=== PATIENT | male | born 1945 | race Hispanic/Latino ===

== ENCOUNTER 2020-01-07 16:10 | Outpatient (CLI) | payer MEDICARE ==
[2020-01-08 09:18] LABS: SARS-CoV-2 MS2 Positive; SARS-CoV-2 N Gene Positive; SARS-CoV-2 S Gene Positive; SARS-CoV-2 by NAA DETECTED (NotDetected); SARS-CoV-2 orf1ab Positive
== END 2020-01-07 16:11 | disposition home or self-care (01) ==
LOC: LABBT 16:10
PROVIDERS: ATTEND Ophthalmology Retina Specialist
DX: U07.1 COVID-19 (principal); Z01.812 Encounter for preprocedural laboratory examination; H54.7 Unspecified visual loss
CPT/HCPCS: 87635; U0003

== ENCOUNTER 2020-04-03 06:24 | Day surgery (SDC) | payer MEDICARE ==
[2020-04-02 11:17] VITALS: BMI 24.2
[2020-04-03] MEDS ORDERED: Fluorouracil 100 MG, Enoxaparin Sodium 25 MG, EPINEPHrine 0.3 MG in Ophthalmic Irrigati... IRR SCH (06:30)
[2020-04-03] MEDS ORDERED: Phenylephrine 2.5% Ophth Soln 5 ML BOT ONE (06:33)
[2020-04-03] MEDS ORDERED: Cyclopentolate 1% Opth Drop 2 ML BOT ONE (06:33)
[2020-04-03] MEDS ORDERED: Midazolam HCl 2 mg/2 ml Vial ONE (07:50)
[2020-04-03] MEDS ORDERED: Fentanyl 100 MCG/2 ML VIAL ONE (07:50)
[2020-04-03] MEDS ORDERED: PROPOFOL 200 MG/20 ML VIAL ONE (12:59)
[2020-04-03] MEDS ORDERED: Enoxaparin Sodium 30 MG/0.3 ML SYRINGE ONE (12:59)
[2020-04-03] MEDS ORDERED: Lidocaine 4% PF 5 ML AMP ONE (12:59)
[2020-04-03] MEDS ORDERED: Maxitrol 0.1% Opth Oint 3.5 GM TUBE ONE (12:59)
[2020-04-03] MEDS ORDERED: Lidocaine 1% PF 5 ML VIAL ONE (12:59)
[2020-04-03] MEDS ORDERED: Triamcinolone 40 MG/ML VIAL ONE (12:59)
[2020-04-03] MEDS ORDERED: Bupivacaine PF 0.75% SDV 10 ML ONE (12:59)
[2020-04-03] MEDS ORDERED: CEFAZOLIN 1 GM VIAL ONE (12:59)
--- NOTE | 2020-04-04 14:17 | OP ---
DATE OF PROCEDURE: 04/03/2020 PREOPERATIVE DIAGNOSES: Glaucoma and dislocated intraocular lens with vitreous in the anterior chamber and vitreous membranes and strands in the right eye. POSTOPERATIVE DIAGNOSES: Glaucoma and dislocated intraocular lens with vitreous in the anterior chamber and vitreous membranes and strands in the right eye. DESCRIPTION OF PROCEDURE: The patient was identified in the preoperative holding area. Appropriate informed consent for the planned surgical procedure on the right eye had been obtained. The patient was transported to the operative suite. Appropriate cardiopulmonary monitoring was established. Local anesthesia was obtained using retrobulbar modified Van Lint lid block using 50:50 mixture of 4% lidocaine and 0.75% bupivacaine. The patient was prepped and draped in the usual sterile manner for ophthalmic surgery in the right eye. Lid speculum was placed in the right eye. A 27-gauge trocar was placed superotemporally, inferotemporally, supranasally. Superotemporal conjunctiva was created and an FP7 tube shunt was sutured to the sclera 14 mm posterior to the limbus superotemporally. Light pipe and vitreous cutter were inserted into the eye. Core vitrectomy was performed. Vitreous was trimmed back 360 degrees. Endolaser photocoagulation was used to treat a suspected retinal defect superotemporally, but no further holes, breaks, or tears were identified. Superotemporal trocar was removed 22-gauge and the tube was placed into the posterior chamber. Tutoplast graft was sutured over the end of the tube and the conjunctiva was closed with 6-0 plain gut suture. Trocars were removed, and the eye was noted to be holding pressure well. Retrobulbar Kenalog and subconjunctival Ancef were placed. Antibiotic ointment was placed. Eye was patched and shielded. The patient was taken to postop recovery unit in good condition having suffered no immediate perioperative complication. The patient was instructed to keep patch and shield on, avoid lifting or bending. Followup appointment with Dr. Leong. Job ID: [id number]
== END 2020-04-03 09:45 | disposition home or self-care (01) ==
LOC: SDC 06:24
PROVIDERS: ATTEND Ophthalmology Retina Specialist
PROC: 08123J4 Bypass Right Anterior Chamber to Sclera with Synthetic Substitute, Percutaneous Approach (ICD-10-PCS; principal; 2020-04-03)
PROC: 08T43ZZ Resection of Right Vitreous, Percutaneous Approach (ICD-10-PCS; 2020-04-03)
PROC: 08QE3ZZ Repair Right Retina, Percutaneous Approach (ICD-10-PCS; 2020-04-03)
DX: H40.2210 Chronic angle-closure glaucoma, right eye, stage unspecified (principal); H43.311 Vitreous membranes and strands, right eye; T85.22XA Displacement of intraocular lens, initial encounter
CPT/HCPCS: 66180; 67039; 82962; L8612; 36416; J0171; J0690; J1650; J2250; J2704; J3010; J3301; J3490; J9190

== ENCOUNTER 2020-05-14 11:55 | Outpatient (CLI) | payer MEDICARE | END 2020-05-14 11:56 | disposition home or self-care (01) | LOC: BICRAD 11:55 | PROVIDERS: ATTEND Family Medicine | DX: R05 Cough (principal); R91.8 Other nonspecific abnormal finding of lung field | CPT/HCPCS: 71046 ==

== ENCOUNTER 2021-04-10 09:23 | Outpatient (CLI) | payer MEDICARE | END 2021-04-10 09:24 | disposition home or self-care (01) | LOC: SCSMRI 09:23 | PROVIDERS: ATTEND Family Medicine | DX: M47.26 Other spondylosis with radiculopathy, lumbar region (principal); I71.4 Abdominal aortic aneurysm, without rupture; M47.817 Spondylosis without myelopathy or radiculopathy, lumbosacral region | CPT/HCPCS: 72148 ==

== ENCOUNTER 2021-04-28 08:16 | Outpatient (CLI) | payer MEDICARE | END 2021-04-28 08:17 | disposition home or self-care (01) | LOC: BICULT 08:16 | PROVIDERS: ATTEND Family Medicine | DX: I71.4 Abdominal aortic aneurysm, without rupture (principal) | CPT/HCPCS: 76775 ==

== ENCOUNTER 2024-10-06 04:43 | Inpatient (IN) | payer OTHER ==
[2024-10-06 05:08] LABS: #Basophils 0.10 10x3/uL (0.0-0.2); #Eosinophils 0.27 10x3/uL (0.0-0.7); #Monocytes 0.75 10x3/uL (0.11-0.59); #Neutrophils 7.79 10x3/uL (1.40-6.50); %Basophils 1.0 % (0.0-1.0); %Eosinophils 2.6 % (0.0-10.0); %Lymphocytes 14.8 % (21.0-51.0); %Monocytes 7.1 % (0.0-10.0); %Neutrophils 74.1 % (42.0-75.0); Hematocrit 40.0 % (42.0-52.0); Hemoglobin 13.0 g/dL (14.0-18.0); Mean Corpuscular Hemoglobin 26.7 pg (27.0-31.0); Mean Corpuscular Volume 82.3 fL (78.0-98.0); Platelet Count 295 10x3/uL (130-400); Red Blood Cell (RBC) Count 4.86 mill/uL (4.70-6.10); White Blood Cell (WBC) Count 10.51 10x3/uL (4.8-10.8)
[2024-10-06 05:22] LABS: INR-International Normal Ratio 0.9; Prothrombin Time 12.5 sec (12.0-14.7)
[2024-10-06 05:23] LABS: PTT 32.1 sec (22.9-36.1)
[2024-10-06 05:24] LABS: ALT (SGPT) 11 U/L (Less than 45); AST (SGOT) 18 U/L (11-34); Albumin 3.5 g/dL (3.1-4.5); Alkaline Phosphatase 100 U/L (40-110); Anion Gap 11 mmol/L (10-20); BUN (Urea Nitrogen) 29 mg/dL (8.4-25.7); Bilirubin, Total 0.3 mg/dL (0.3-1.2); Calc. Creatinine Clearance 0 mL/min (70-130); Calcium 8.7 mg/dL (7.8-10.44); Carbon Dioxide 19 mmol/L (23-31); Chloride 109 mmol/L (98-107); Globulin 3.3 g/dL (2.4-3.5); Glucose 166 mg/dL (83-110); Potassium 3.9 mmol/L (3.5-5.1); Sodium 135 mmol/L (136-145)
[2024-10-06] MEDS ORDERED: Aspirin 325 MG TAB ONE (07:53)
[2024-10-06] MEDS ORDERED: hydrALAZINE 20 MG/ML VIAL SLOW IVP PRN (08:40)
[2024-10-06] MEDS ORDERED: Ondansetron PF 4 MG/2 ML Vial IVP PRN (08:41)
[2024-10-06] MEDS ORDERED: Calcium Carbonate 500 MG ChewTAB PO PRN (08:41)
[2024-10-06] MEDS ORDERED: Electrolyte Replacement Protocol 1 EACH FS SCH (08:45)
[2024-10-06] MEDS ORDERED: Glucagon 1 MG/ML KIT IM PRN (09:28)
[2024-10-06] MEDS ORDERED: Dextrose 50% Abboject 50 ML SYRINGE SLOW IVP PRN (09:28)
[2024-10-06] MEDS ORDERED: Iopamidol 370 76% 100 ML VIAL ONE (13:37)
[2024-10-06 20:33] VITALS: BMI 23.8
[2024-10-06] MEDS: Rosuvastatin 20 MG TAB PO SCH (20:42)
[2024-10-07 05:15] LABS: #Basophils 0.11 10x3/uL (0.0-0.2); #Eosinophils 0.32 10x3/uL (0.0-0.7); #Monocytes 0.68 10x3/uL (0.11-0.59); #Neutrophils 6.90 10x3/uL (1.40-6.50); %Basophils 1.1 % (0.0-1.0); %Eosinophils 3.3 % (0.0-10.0); %Lymphocytes 17.9 % (21.0-51.0); %Monocytes 6.9 % (0.0-10.0); %Neutrophils 70.3 % (42.0-75.0); Hematocrit 42.1 % (42.0-52.0); Hemoglobin 13.2 g/dL (14.0-18.0); Mean Corpuscular Hemoglobin 26.1 pg (27.0-31.0); Mean Corpuscular Volume 83.4 fL (78.0-98.0); Platelet Count 302 10x3/uL (130-400); Red Blood Cell (RBC) Count 5.05 mill/uL (4.70-6.10); White Blood Cell (WBC) Count 9.82 10x3/uL (4.8-10.8)
[2024-10-07 05:36] LABS: ALT (SGPT) 9 U/L (Less than 45); AST (SGOT) 16 U/L (11-34); Albumin 3.4 g/dL (3.1-4.5); Alkaline Phosphatase 70 U/L (40-110); Anion Gap 10 mmol/L (10-20); BUN (Urea Nitrogen) 18 mg/dL (8.4-25.7); Bilirubin, Total 0.3 mg/dL (0.3-1.2); Calc. Creatinine Clearance 45 mL/min (70-130); Calcium 8.9 mg/dL (7.8-10.44); Carbon Dioxide 21 mmol/L (23-31); Cardiac Risk 3.7 (Less than 4.5); Chloride 111 mmol/L (98-107); Cholesterol 157 mg/dl (< 200 Desired); Globulin 3.3 g/dL (2.4-3.5); Glucose 127 mg/dL (83-110); HDL Cholesterol 43 mg/dL (>60 Neg Risk); LDL Cholesterol, Calculated 99 mg/dL; Potassium 3.9 mmol/L (3.5-5.1); Sodium 138 mmol/L (136-145); Triglycerides 74 mg/dL (Less than 150)
[2024-10-07] MEDS: Aspirin 81 mg Enteric Coated Tablet PO SCH (09:00)
[2024-10-07] MEDS: Rosuvastatin 20 MG TAB PO SCH (21:21)
[2024-10-08] MEDS: Acetaminophen 325 MG TAB PO PRN (07:15)
[2024-10-08] MEDS ORDERED: Senokot 8.6 MG TAB PO PRN (12:25)
[2024-10-08 16:01] VITALS: BMI 23.8
[2024-10-09] MEDS: Enoxaparin 40 MG (0.4 mL) SYRINGE SC SCH (08:58)
[2024-10-09 09:38] LABS: Bacteria/HPF None Seen HPF (None Seen); CAUTI Indications for Culture Pelvic or flank pain; Glucose, Urine (Dipstick) Normal (Negative); Leukocyte Negative Leu/uL (Negative); Protein, Urine (Dipstick) 70 mg/dL (Neg-Trace); RBC/HPF 0-3 HPF (0-3); Specific Gravity, Urine 1.019 (1.002-1.036); WBC/HPF 0-3 HPF (0-3)
[2024-10-09 09:39] LABS: Urine Culture Reflex No No
[2024-10-09 12:13] VITALS: TEMP 97.8
[2024-10-09 15:06] VITALS: BP 154/72
== END 2024-10-09 16:45 | DRG 65 ==
LOC: ERS 04:43 → ERHOLD 07:47 → 2NO 23:50
PROVIDERS: ADMIT Student in an Organized Health Care Education/Training Program; ATTEND Internal Medicine
DX: I63.9 Cerebral infarction, unspecified (principal); G81.91 Hemiplegia, unspecified affecting right dominant side; N17.9 Acute kidney failure, unspecified; E11.9 Type 2 diabetes mellitus without complications; Z98.890 Other specified postprocedural states; Z72.0 Tobacco use; Z82.49 Family history of ischemic heart disease and other diseases of the circulatory system; Z83.3 Family history of diabetes mellitus; Z79.899 Other long term (current) drug therapy; R29.810 Facial weakness; R29.706 NIHSS score 6
CPT/HCPCS: 0042T; 36415; 36416; 70450; 70496; 70498; 70551; 80053; 80061; 81001; 83036; 84484; 85025; 85610; 85730; 93005; 93306; 94760; J1650; J1815; Q9967

== ENCOUNTER 2024-11-03 07:19 | Inpatient (IN) | payer OTHER ==
[2024-11-03 08:01] LABS: #Basophils 0.11 10x3/uL (0.0-0.2); #Eosinophils 0.44 10x3/uL (0.0-0.7); #Monocytes 0.79 10x3/uL (0.11-0.59); #Neutrophils 5.81 10x3/uL (1.40-6.50); %Basophils 1.2 % (0.0-1.0); %Eosinophils 4.8 % (0.0-10.0); %Lymphocytes 21.1 % (21.0-51.0); %Monocytes 8.7 % (0.0-10.0); %Neutrophils 63.8 % (42.0-75.0); Hematocrit 40.3 % (42.0-52.0); Hemoglobin 12.7 g/dL (14.0-18.0); Mean Corpuscular Hemoglobin 26.6 pg (27.0-31.0); Mean Corpuscular Volume 84.5 fL (78.0-98.0); Platelet Count 322 10x3/uL (130-400); Red Blood Cell (RBC) Count 4.77 mill/uL (4.70-6.10); White Blood Cell (WBC) Count 9.11 10x3/uL (4.8-10.8)
[2024-11-03 08:18] LABS: Magnesium 1.8 mg/dL (1.6-2.6)
[2024-11-03 08:19] LABS: ALT (SGPT) 16 U/L (Less than 45); AST (SGOT) 19 U/L (11-34); Acetaminophen Less than 10 mcg/mL (Less than 10); Albumin 3.5 g/dL (3.1-4.5); Alkaline Phosphatase 89 U/L (40-110); Anion Gap 16 mmol/L (10-20); BUN (Urea Nitrogen) 27 mg/dL (8.4-25.7); Bilirubin, Total 0.3 mg/dL (0.3-1.2); Calc. Creatinine Clearance 0 mL/min (70-130); Calcium 9.2 mg/dL (7.8-10.44); Carbon Dioxide 19 mmol/L (23-31); Chloride 108 mmol/L (98-107); Globulin 3.0 g/dL (2.4-3.5); Glucose 166 mg/dL (83-110); Potassium 3.7 mmol/L (3.5-5.1); Salicylate Less than 8.0 mg/dL (Less than 8.0); Sodium 139 mmol/L (136-145)
[2024-11-03 08:48] LABS: Bacteria/HPF None Seen HPF (None Seen); CAUTI Indications for Culture Alt mental st,lethar; Glucose, Urine (Dipstick) 100 mg/dL (Negative); Leukocyte Negative Leu/uL (Negative); Protein, Urine (Dipstick) 50 mg/dL (Neg-Trace); RBC/HPF 0-3 HPF (0-3); Specific Gravity, Urine 1.013 (1.002-1.036); WBC/HPF 0-3 HPF (0-3)
[2024-11-03 08:53] LABS: Urine Culture Reflex No No
[2024-11-03 08:57] LABS: Cocaine Metabolite Screen Negative (Negative); THC/Cannabinoid Screen Negative (Negative); Tricyclic Screen Negative (Negative)
[2024-11-03] MEDS ORDERED: hydrALAZINE 20 MG/ML VIAL ONE (09:24)
[2024-11-03] MEDS ORDERED: Acetaminophen 500 MG TAB ONE (09:24)
[2024-11-03] MEDS ORDERED: Dextrose 50% Abboject 50 ML SYRINGE SLOW IVP PRN (10:01)
[2024-11-03] MEDS ORDERED: Senokot S 8.6-50 MG TAB PO PRN (10:01)
[2024-11-03] MEDS ORDERED: Glucagon 1 MG/ML KIT IM PRN (10:01)
[2024-11-03] MEDS ORDERED: hydrALAZINE 20 MG/ML VIAL SLOW IVP PRN (10:01)
[2024-11-03 10:19] VITALS: BMI 25.4
[2024-11-03] MEDS ORDERED: Ondansetron PF 4 MG/2 ML Vial ONE (12:23)
[2024-11-03] MEDS: Ondansetron PF 4 MG/2 ML Vial IVP SCH (12:28)
[2024-11-03] MEDS: Rosuvastatin 20 MG TAB PO SCH (21:19)
[2024-11-03] MEDS: Famotidine 20 MG TAB PO SCH (21:19)
[2024-11-04 04:09] LABS: #Basophils 0.07 10x3/uL (0.0-0.2); #Eosinophils 0.12 10x3/uL (0.0-0.7); #Monocytes 0.63 10x3/uL (0.11-0.59); #Neutrophils 9.22 10x3/uL (1.40-6.50); %Basophils 0.6 % (0.0-1.0); %Eosinophils 1.1 % (0.0-10.0); %Lymphocytes 9.8 % (21.0-51.0); %Monocytes 5.6 % (0.0-10.0); %Neutrophils 82.6 % (42.0-75.0); Hematocrit 38.0 % (42.0-52.0); Hemoglobin 12.0 g/dL (14.0-18.0); Mean Corpuscular Hemoglobin 26.5 pg (27.0-31.0); Mean Corpuscular Volume 83.9 fL (78.0-98.0); Platelet Count 287 10x3/uL (130-400); Red Blood Cell (RBC) Count 4.53 mill/uL (4.70-6.10); White Blood Cell (WBC) Count 11.16 10x3/uL (4.8-10.8)
[2024-11-04 04:21] LABS: Anion Gap 11 mmol/L (10-20); BUN (Urea Nitrogen) 23 mg/dL (8.4-25.7); Calc. Creatinine Clearance 40 mL/min (70-130); Calcium 8.7 mg/dL (7.8-10.44); Carbon Dioxide 22 mmol/L (23-31); Cardiac Risk 2.5 (Less than 4.5); Chloride 110 mmol/L (98-107); Cholesterol 81 mg/dl (< 200 Desired); Glucose 163 mg/dL (83-110); HDL Cholesterol 32 mg/dL (>60 Neg Risk); LDL Cholesterol, Calculated 38 mg/dL; Potassium 4.0 mmol/L (3.5-5.1); Sodium 139 mmol/L (136-145); Triglycerides 55 mg/dL (Less than 150)
[2024-11-04] MEDS: Acetaminophen 325 MG TAB PO PRN (09:29)
[2024-11-04] MEDS: Aspirin 81 mg Enteric Coated Tablet PO SCH (09:29)
[2024-11-05] MEDS: Ondansetron PF 4 MG/2 ML Vial IVP PRN (00:13)
[2024-11-05] MEDS: hydrALAZINE 10 MG TAB PO SCH (18:17)
[2024-11-05] MEDS: Melatonin 3 MG TAB PO PRN (20:40)
[2024-11-06] MEDS: hydrALAZINE 20 MG/ML VIAL SLOW IVP PRN (08:58)
[2024-11-06] MEDS: cefTRIAXone\\ROCEPHIN 2 GM in Sodium Chloride 0.9% 100 ML IVPB SCH (16:07)
[2024-11-06] MEDS: NIFEdipine XL 30 MG ER.TAB PO SCH (16:07)
[2024-11-06 22:56] LABS: Bacteria/HPF None Seen HPF (None Seen); CAUTI Indications for Culture Alt mental st,lethar; Glucose, Urine (Dipstick) 50 mg/dL (Negative); Leukocyte Negative Leu/uL (Negative); Protein, Urine (Dipstick) 100 mg/dL (Neg-Trace); Specific Gravity, Urine 1.021 (1.002-1.036); WBC/HPF 0-3 HPF (0-3)
[2024-11-06 22:58] LABS: Urine Culture Reflex No No
[2024-11-07 06:17] LABS: Anion Gap 14 mmol/L (10-20); BUN (Urea Nitrogen) 21 mg/dL (8.4-25.7); Calc. Creatinine Clearance 46 mL/min (70-130); Calcium 9.2 mg/dL (7.8-10.44); Carbon Dioxide 21 mmol/L (23-31); Chloride 107 mmol/L (98-107); Glucose 114 mg/dL (83-110); Potassium 3.6 mmol/L (3.5-5.1); Sodium 138 mmol/L (136-145)
[2024-11-07] MEDS: NIFEdipine XL 30 MG ER.TAB PO SCH ×2 (09:10→21:10)
[2024-11-07] MEDS: Enoxaparin 30 MG (0.3 mL) SYRINGE SC SCH (21:11)
[2024-11-08 05:42] LABS: #Basophils 0.13 10x3/uL (0.0-0.2); #Eosinophils 0.27 10x3/uL (0.0-0.7); #Monocytes 0.97 10x3/uL (0.11-0.59); #Neutrophils 7.77 10x3/uL (1.40-6.50); %Basophils 1.2 % (0.0-1.0); %Eosinophils 2.4 % (0.0-10.0); %Lymphocytes 17.7 % (21.0-51.0); %Monocytes 8.7 % (0.0-10.0); %Neutrophils 69.6 % (42.0-75.0); Hematocrit 44.1 % (42.0-52.0); Hemoglobin 14.2 g/dL (14.0-18.0); Mean Corpuscular Hemoglobin 26.1 pg (27.0-31.0); Mean Corpuscular Volume 81.1 fL (78.0-98.0); Platelet Count 341 10x3/uL (130-400); Red Blood Cell (RBC) Count 5.44 mill/uL (4.70-6.10); White Blood Cell (WBC) Count 11.15 10x3/uL (4.8-10.8)
[2024-11-08 05:52] LABS: Anion Gap 14 mmol/L (10-20); BUN (Urea Nitrogen) 31 mg/dL (8.4-25.7); Calc. Creatinine Clearance 43 mL/min (70-130); Calcium 9.4 mg/dL (7.8-10.44); Carbon Dioxide 22 mmol/L (23-31); Chloride 107 mmol/L (98-107); Glucose 115 mg/dL (83-110); Potassium 3.8 mmol/L (3.5-5.1); Sodium 139 mmol/L (136-145)
[2024-11-08] MEDS: Senokot S 8.6-50 MG TAB PO SCH (08:32)
[2024-11-08] MEDS: Enoxaparin 40 MG (0.4 mL) SYRINGE SC SCH (21:27)
[2024-11-09 06:30] LABS: Anion Gap 16 mmol/L (10-20); BUN (Urea Nitrogen) 29 mg/dL (8.4-25.7); Calc. Creatinine Clearance 44 mL/min (70-130); Calcium 9.4 mg/dL (7.8-10.44); Carbon Dioxide 20 mmol/L (23-31); Chloride 105 mmol/L (98-107); Glucose 107 mg/dL (83-110); Potassium 3.9 mmol/L (3.5-5.1); Sodium 137 mmol/L (136-145)
[2024-11-09] MEDS: Fioricet 325/50/40 mg Tablet PO PRN (11:24)
[2024-11-09] MEDS: Gabapentin 100 MG CAP PO SCH (20:04)
[2024-11-10 05:56] LABS: #Basophils 0.10 10x3/uL (0.0-0.2); #Eosinophils 0.30 10x3/uL (0.0-0.7); #Monocytes 0.80 10x3/uL (0.11-0.59); #Neutrophils 6.99 10x3/uL (1.40-6.50); %Basophils 1.0 % (0.0-1.0); %Eosinophils 3.0 % (0.0-10.0); %Lymphocytes 18.8 % (21.0-51.0); %Monocytes 7.9 % (0.0-10.0); %Neutrophils 68.9 % (42.0-75.0); Hematocrit 41.6 % (42.0-52.0); Hemoglobin 13.7 g/dL (14.0-18.0); Mean Corpuscular Hemoglobin 26.4 pg (27.0-31.0); Mean Corpuscular Volume 80.3 fL (78.0-98.0); Platelet Count 296 10x3/uL (130-400); Red Blood Cell (RBC) Count 5.18 mill/uL (4.70-6.10); White Blood Cell (WBC) Count 10.13 10x3/uL (4.8-10.8)
[2024-11-10 06:27] LABS: Anion Gap 14 mmol/L (10-20); BUN (Urea Nitrogen) 33 mg/dL (8.4-25.7); Calc. Creatinine Clearance 42 mL/min (70-130); Calcium 9.0 mg/dL (7.8-10.44); Carbon Dioxide 20 mmol/L (23-31); Chloride 106 mmol/L (98-107); Glucose 105 mg/dL (83-110); Potassium 3.6 mmol/L (3.5-5.1); Sodium 136 mmol/L (136-145)
[2024-11-10] MEDS ORDERED: Milk Of Magnesia 30 ML UDCUP PO PRN (09:00)
[2024-11-11 06:53] LABS: Anion Gap 12 mmol/L (10-20); BUN (Urea Nitrogen) 30 mg/dL (8.4-25.7); Calc. Creatinine Clearance 41 mL/min (70-130); Calcium 9.2 mg/dL (7.8-10.44); Carbon Dioxide 23 mmol/L (23-31); Chloride 104 mmol/L (98-107); Glucose 95 mg/dL (83-110); Potassium 3.6 mmol/L (3.5-5.1); Sodium 135 mmol/L (136-145)
[2024-11-11 12:59] VITALS: BP 153/66; TEMP 97.4
== END 2024-11-11 15:15 | DRG 92 ==
LOC: ERS 07:19 → 2SE 09:34 → ERHOLD 09:34 → 2SE 12:58 → OBSVTOIN 11-05 09:48 → SURG A 11-06 02:14
PROVIDERS: ADMIT Hospitalist; ATTEND Internal Medicine Critical Care Medicine
DX: R29.818 Other symptoms and signs involving the nervous system (principal); I69.951 Hemiplegia and hemiparesis following unspecified cerebrovascular disease affecting right dominant side; I69.922 Dysarthria following unspecified cerebrovascular disease; R26.2 Difficulty in walking, not elsewhere classified; F17.210 Nicotine dependence, cigarettes, uncomplicated; I12.9 Hypertensive chronic kidney disease with stage 1 through stage 4 chronic kidney disease, or unspecified chronic kidney disease; D72.829 Elevated white blood cell count, unspecified; R13.10 Dysphagia, unspecified; R51.9 Headache, unspecified; N18.30 Chronic kidney disease, stage 3 unspecified; E11.22 Type 2 diabetes mellitus with diabetic chronic kidney disease; Z79.82 Long term (current) use of aspirin; Z79.84 Long term (current) use of oral hypoglycemic drugs; Z79.899 Other long term (current) drug therapy; W19.XXXA Unspecified fall, initial encounter
CPT/HCPCS: 36415; 36416; 70450; 70551; 71045; 72125; 74230; 80048; 80053; 80061; 80306; 80307; 81001; 83735; 84484; 85025; 93005; 96374; 96375; 96376; 97139; G0378; G0390; J0360; J0696; J1650; J1815; J7030

== ENCOUNTER 2025-01-07 13:42 | Observation (INO) | payer MEDICARE, OTHER ==
[2025-01-07 14:55] LABS: #Basophils 0.10 10x3/uL (0.0-0.2); #Eosinophils 0.32 10x3/uL (0.0-0.7); #Monocytes 0.63 10x3/uL (0.11-0.59); #Neutrophils 6.37 10x3/uL (1.40-6.50); %Basophils 1.1 % (0.0-1.0); %Eosinophils 3.4 % (0.0-10.0); %Lymphocytes 20.5 % (21.0-51.0); %Monocytes 6.7 % (0.0-10.0); %Neutrophils 68.0 % (42.0-75.0); Hematocrit 35.5 % (42.0-52.0); Hemoglobin 11.2 g/dL (14.0-18.0); Mean Corpuscular Hemoglobin 26.2 pg (27.0-31.0); Mean Corpuscular Volume 82.9 fL (78.0-98.0); Platelet Count 321 10x3/uL (130-400); Red Blood Cell (RBC) Count 4.28 mill/uL (4.70-6.10); White Blood Cell (WBC) Count 9.37 10x3/uL (4.8-10.8)
[2025-01-07 15:10] LABS: ALT (SGPT) 9 U/L (Less than 45); AST (SGOT) 22 U/L (11-34); Albumin 3.1 g/dL (3.1-4.5); Alkaline Phosphatase 58 U/L (40-110); Anion Gap 14 mmol/L (10-20); BUN (Urea Nitrogen) 16 mg/dL (8.4-25.7); Bilirubin, Total 0.5 mg/dL (0.3-1.2); Calc. Creatinine Clearance 0 mL/min (70-130); Calcium 9.0 mg/dL (7.8-10.44); Carbon Dioxide 20 mmol/L (23-31); Chloride 108 mmol/L (98-107); Globulin 3.6 g/dL (2.4-3.5); Glucose 86 mg/dL (83-110); Potassium 4.0 mmol/L (3.5-5.1); Sodium 138 mmol/L (136-145)
[2025-01-07 15:17] LABS: INR-International Normal Ratio 1.1; Prothrombin Time 13.9 sec (12.0-14.7)
[2025-01-07 15:18] LABS: PTT 32.6 sec (22.9-36.1)
[2025-01-07] MEDS ORDERED: Calcium Carbonate 500 MG ChewTAB PO PRN (17:10)
[2025-01-07] MEDS ORDERED: Ondansetron PF 4 MG/2 ML Vial IVP PRN (17:10)
[2025-01-07] MEDS ORDERED: Senokot S 8.6-50 MG TAB PO PRN (17:10)
[2025-01-07] MEDS ORDERED: Acetaminophen/Codeine 30-300mg Tablet PO PRN (17:10)
[2025-01-07] MEDS ORDERED: Guaifenesin DM 100-10/5 ML UDCUP PO PRN (17:10)
[2025-01-07] MEDS ORDERED: Glucagon 1 MG/ML KIT IM PRN (17:15)
[2025-01-07] MEDS ORDERED: Electrolyte Replacement Protocol 1 EACH FS SCH (17:15)
[2025-01-07] MEDS ORDERED: Dextrose 50% Abboject 50 ML SYRINGE SLOW IVP PRN (17:15)
[2025-01-07] MEDS ORDERED: Potassium Chloride 20 MEQ in Premix 1 BAG IVPB PRN (17:30)
[2025-01-07] MEDS ORDERED: Magnesium 2 GM/50 ML(in water) 2 GM in Premix 1 BAG IVPB PRN (17:30)
[2025-01-07] MEDS ORDERED: PHOS-NAK 1 PKT PACK PO PRN (17:30)
[2025-01-07 20:02] VITALS: BMI 21.8
[2025-01-07] MEDS: Rosuvastatin 20 MG TAB PO SCH (21:14)
[2025-01-08] MEDS: hydrALAZINE 20 MG/ML VIAL SLOW IVP PRN (02:58)
[2025-01-08] MEDS: Acetaminophen 325 MG TAB PO PRN (03:05)
[2025-01-08 06:26] LABS: ALT (SGPT) Less than 7 U/L (Less than 45); AST (SGOT) 12 U/L (11-34); Albumin 2.9 g/dL (3.1-4.5); Alkaline Phosphatase 56 U/L (40-110); Anion Gap 12 mmol/L (10-20); BUN (Urea Nitrogen) 15 mg/dL (8.4-25.7); Bilirubin, Total 0.6 mg/dL (0.3-1.2); Calc. Creatinine Clearance 38 mL/min (70-130); Calcium 8.9 mg/dL (7.8-10.44); Carbon Dioxide 20 mmol/L (23-31); Chloride 110 mmol/L (98-107); Globulin 3.1 g/dL (2.4-3.5); Glucose 89 mg/dL (83-110); Potassium 3.5 mmol/L (3.5-5.1); Sodium 138 mmol/L (136-145)
[2025-01-08 07:00] LABS: #Basophils 0.10 10x3/uL (0.0-0.2); #Eosinophils 0.44 10x3/uL (0.0-0.7); #Monocytes 0.57 10x3/uL (0.11-0.59); #Neutrophils 5.14 10x3/uL (1.40-6.50); %Basophils 1.2 % (0.0-1.0); %Eosinophils 5.4 % (0.0-10.0); %Lymphocytes 22.4 % (21.0-51.0); %Monocytes 7.1 % (0.0-10.0); %Neutrophils 63.7 % (42.0-75.0); Hematocrit 32.9 % (42.0-52.0); Hemoglobin 10.6 g/dL (14.0-18.0); Mean Corpuscular Hemoglobin 26.0 pg (27.0-31.0); Mean Corpuscular Volume 80.6 fL (78.0-98.0); Platelet Count 357 10x3/uL (130-400); Red Blood Cell (RBC) Count 4.08 mill/uL (4.70-6.10); White Blood Cell (WBC) Count 8.08 10x3/uL (4.8-10.8)
[2025-01-08 10:46] LABS: Potassium 4.5 mmol/L (3.5-5.1)
[2025-01-08 11:20] VITALS: BMI 21.8
[2025-01-08 15:44] VITALS: TEMP 97.9
[2025-01-08 15:56] VITALS: BP 137/65
== END 2025-01-08 17:05 | disposition home health service (06) ==
LOC: ERS 13:42 → ERHOLD 17:10 → INTOOBSV 17:10 → 2NO 22:30
PROVIDERS: ADMIT Internal Medicine; ATTEND Internal Medicine
DX: R41.82 Altered mental status, unspecified (principal); R53.1 Weakness; M25.512 Pain in left shoulder; I10 Essential (primary) hypertension; E11.9 Type 2 diabetes mellitus without complications; F17.200 Nicotine dependence, unspecified, uncomplicated; Z86.73 Personal history of transient ischemic attack (TIA), and cerebral infarction without residual deficits; Z79.84 Long term (current) use of oral hypoglycemic drugs; Z79.82 Long term (current) use of aspirin; Z79.899 Other long term (current) drug therapy; S06.5X0A Traumatic subdural hemorrhage without loss of consciousness, initial encounter
CPT/HCPCS: 70450 ×2; 71045; 72125; 80053 ×2; 82962 ×2; 83880; 84132; 84484; 85025 ×2; 85610; 85730; 86850; 86900; 86901; 93005; 95700; 95711; 95957; 96374; 97116; 99285; G0378 ×3; J0360; 36415; 36416